=== PATIENT | male | born 1940 | race Caucasian/White ===

== ENCOUNTER → 2018-11-23 08:12 | Outpatient (CLI) | payer MEDICARE | END | disposition home or self-care (01) | LOC: D.MRI 08:12 | PROVIDERS: ATTEND Orthopaedic Surgery | DX: M48.061 Spinal stenosis, lumbar region without neurogenic claudication (principal) ==

== ENCOUNTER 2019-04-04 23:29 | Emergency (ER) | payer MEDICARE ==
[~2019-04-04] VITALS: Ht 167.6 cm; Wt 75.0 kg
[2019-04-04 23:33] VITALS: Ht 167.6 cm; Wt 75.0 kg
[2019-04-04] MEDS ORDERED: ULTRAM50 MG PO (23:34)
[2019-04-05 00:23] VITALS: BP 148/72
== END 2019-04-05 00:23 | disposition home or self-care (01) ==
LOC: D.ER 23:29
DX: M54.5 Low back pain (principal)